=== PATIENT | male | born 1945 | race Caucasian/White ===

== ENCOUNTER 2016-11-10 05:15 | Day surgery (SDC) | payer OTHER ==
[2016-11-07 13:41] LABS: HEMATOCRIT 36.7 % (42.0-52.0); HEMOGLOBIN 12.7 g/dL (14.0-18.0); MCH 31.2 PG (27-31); MCHC 34.6 g/dL (33-37); MCV 90.2 FL (81-99); MPV 10.8 FL (7.4-10.4); RBC 4.07 XMIL (4.7-6.1)
[2016-11-07 14:25] LABS: ALBUMIN 4.1 g/dL (3.5-5.0); ALKALINE PHOSPHATASE 39 U/L (32-122); CALCIUM 9.1 mg/dL (8.8-10.2); DIRECT BILIRUBIN < 0.20 mg/dL (0.00-0.20); GOT 15 U/L (10-34); GPT 16 U/L (10-44); LIPASE 46 U/L (13-60); POTASSIUM 3.6 mmol/L (3.5-5.1); TOTAL BILIRUBIN 0.52 mg/dL (0.20-1.00); TOTAL PROTEIN 7.5 g/dL (6.3-8.3)
--- NOTE | 2016-11-07 15:37 | EKG Report ---
Test Performed on : 11/07/2016 1:31:12 PM Test Reason : PAT Blood Pressure : / mmHG Vent. Rate : 053 BPM Atrial Rate : 053 BPM P-R Int : 248 ms QRS Dur : 090 ms QT Int : 450 ms P-R-T Axes : 076 061 047 degrees QTc Int : 422 ms Sinus bradycardia. with 1st degree AV block. Otherwise normal ECG No previous ECGs available Confirmed by Candice MONREAL, Anand Villanueva ([id number]) on 11/07/2016 5:24:53 PM
[2016-11-10] MEDS ORDERED: KEFZOL 2 GM/D5W 50 ML ONE (05:28)
[2016-11-10] MEDS ORDERED: LR 1,000 ML ONE ×2 (05:28→06:39)
[2016-11-10] MEDS ORDERED: PEPCID ONE (05:29)
[2016-11-10] MEDS ORDERED: MARCAINE 0.25% PF/EPI 1:200,000 ONE (06:39)
[2016-11-10] MEDS ORDERED: SODIUM CHLORIDE 0.9% ONE (06:39)
[2016-11-10] MEDS ORDERED: REGLAN ONE (07:00)
[2016-11-10] MEDS ORDERED: FENTANYL ONE (09:16)
[2016-11-10] MEDS ORDERED: DIPRIVAN 1% ONE (09:16)
[2016-11-10] MEDS ORDERED: ZOFRAN ONE (09:19)
[2016-11-10] MEDS ORDERED: XYLOCAINE-MPF 2% ONE (09:20)
[2016-11-10] MEDS ORDERED: NORCURON ONE (09:20)
[2016-11-10] MEDS ORDERED: ROBINUL ONE (09:20)
[2016-11-10] MEDS ORDERED: QUELICIN (DOSE) ONE (09:20)
[2016-11-10] MEDS ORDERED: LR 2,000 ML ONE (09:20)
[2016-11-10] MEDS ORDERED: EPHEDRINE ONE (09:20)
[2016-11-10] MEDS ORDERED: NORCO-7.5 PO PRN (10:11)
[2016-11-10] MEDS ORDERED: ZOFRAN IV PRN ×2 (10:11→13:55)
[2016-11-10] MEDS ORDERED: NORCO-7.5 ONE ×2 (10:23→11:28)
--- NOTE | 2016-11-10 10:24 | OPERATIVE NOTE ---
PROCEDURE DATE : 11/10/2016 PREOPERATIVE DIAGNOSIS: Symptomatic cholelithiasis. POSTOPERATIVE DIAGNOSIS: Chronic cholecystitis. PROCEDURE PERFORMED: Laparoscopic cholecystectomy. COMPLICATIONS: None. ESTIMATED BLOOD LOSS: 20 mL. SPECIMENS: Gallbladder. ANESTHESIA: General. INDICATION: This is a 70-year-old male with right upper quadrant pain, nausea for several weeks. Ultrasound shows stones and thickening. OPERATIVE FINDINGS: Chronically inflamed with dense omental adhesions to the gallbladder, very thin-walled gallbladder, thick bile noted with some purulence within. DESCRIPTION OF PROCEDURE: Risks, benefits, and alternatives were discussed with the patient. He consented to the procedure. He was taken to the operating room, placed in supine position. General anesthesia was induced without complication. There was no complication to the induction. Preincisional antibiotics were administered. His abdomen was prepped with chlorhexidine solution and draped in usual fashion. A periumbilical block was performed. He had an umbilical hernia. After a time-out, we made an incision through this, dissected out the hernia sac , entered that, and here placed a 12 mm Jose M trocar and insufflated the abdomen, inspected it , no evidence of injury. Three 5 mm trocars were placed, one in the epigastrium, one in the midclavicular line off the costal margin, and one more laterally. We grasped the gallbladder, lifted it cephalad. There were a lot of omental adhesions that bled easily. We took these down with electrocautery, exposing the gallbladder wall. Upon grasping the gallbladder, it ruptured. We suctioned bile clear. Slow, meticulous dissection was carried starting laterally, progressing medial. It was very difficult to identify the cystic duct, but we were able to clearly identify the infundibulum. We encircled the lower third of the gallbladder and the infundibulum, but there was dense portal inflammation. As such, we did not proceed with any dissection distally. We attempted to perform a cholangiogram, but given the caliber of the infundibulum was too large, there was preferential flow in the gallbladder itself, and there was a small opening during the dissection of the infundibulum, as well. Given the size and dilated nature, we transected the gallbladder at the level of the infundibulum, using PDS Endoloops, we closed this x2. There was no leakage. There appeared to be good closure of this. We irrigated the wound. At this point, we took the gallbladder off the gallbladder fossa, obtaining hemostasis. There was a small arterial branch that was doubly clipped and divided, as well. We copiously irrigated the abdomen. There was no evidence of bleeding or bile leakage. We placed a Candelario drain in the gallbladder fossa, brought it out through a lateral port and secured it with 2-0 nylon suture. We desufflated the abdomen, again inspecting. There was no bile leakage at this time. We closed the fascia with interrupted 0 Vicryl suture, the skin with 4-0 Monocryl. Dermabond was applied, gauze, Tegaderm dressing was applied at the umbilicus. Counts correct x2. He tolerated the procedure well. There were no identified complication. [facility]
[2016-11-10] MEDS ORDERED: LR 1,000 ML IV SCH (13:55)
[2016-11-10] MEDS: PERIDEX MT SCH ×2 (15:00→20:45)
[2016-11-10] MEDS: NORCO-7.5 PO PRN (15:00)
[2016-11-10] MEDS: ZOSYN 3.375 GM/NS 50 ML IV SCH ×2 (18:32→23:12)
[2016-11-10] MEDS: LR 1,000 ML IV SCH (18:33)
[2016-11-11] MEDS: LR 1,000 ML IV SCH ×3 (01:07→17:54)
[2016-11-11] MEDS: ZOSYN 3.375 GM/NS 50 ML IV SCH ×3 (04:22→11:34)
[2016-11-11 06:25] LABS: MANUAL DIFF NEEDED? NO
[2016-11-11 06:56] LABS: ALBUMIN 3.4 g/dL (3.5-5.0); CALCIUM 8.7 mg/dL (8.8-10.2); TOTAL BILIRUBIN 0.58 mg/dL (0.20-1.00); TOTAL PROTEIN 6.2 g/dL (6.3-8.3)
[2016-11-11 07:40] LABS: BASO% 0.2 % (0.0-0.8); EOS# 0.13 X1000 (0.0-0.7); EOS% 2.2 % (0.0-10.0); HEMATOCRIT 32.4 % (42.0-52.0); LYMPH# 1.17 X1000 (1.2-3.4); LYMPH% 19.5 % (20.5-51.1); MCH 30.9 PG (27-31); MONO# 0.59 X1000 (0.11-0.59); MONO% 9.8 % (1.7-9.3); MPV 11.6 FL (7.4-10.4); NEUT% 68.3 % (42.2-75.2); PLT 116 X1000 (130-400); RBC 3.56 XMIL (4.7-6.1)
[2016-11-11 07:44] LABS: INR 1.06; PROTIME 10.8 Seconds (9.2-11.7); PTT 24.3 Seconds (22.0-36.0)
[2016-11-11] MEDS ORDERED: LIPITOR PO SCH (09:00)
[2016-11-11] MEDS ORDERED: ASPIRIN PO SCH (09:00)
[2016-11-11] MEDS: NORCO-7.5 PO PRN (09:53)
[2016-11-11] MEDS: NORVASC PO SCH (09:54)
[2016-11-11] MEDS: LOPRESSOR PO SCH (09:54)
[2016-11-11] MEDS: PRILOSEC PO SCH (09:54)
[2016-11-11] MEDS: FLONASE NAS SCH (09:54)
[2016-11-11] MEDS: PERIDEX MT SCH ×2 (09:55→21:50)
[2016-11-11] MEDS ORDERED: KLOR-CON PO ONE (10:05)
--- NOTE | 2016-11-11 12:50 | PROGRESS NOTE ---
DATE: 11/11/2016 SUBJECTIVE: He feels better this morning. Had some nausea with emesis overnight. The pain finding is really just over his incisions. Otherwise no issues. VITALS: He is afebrile. No tachycardia. Blood pressure is 133/49.General: He is alert. There is no jaundice. His incisions are clean, dry, intact. Abdomen: Is nondistended, appropriately tender at his incisions only mildly so. There is no peritonitis. His SHWETA drain is serosanguineous. There is some bile tinge to it as well. This appears to be improved since yesterday. LABS: White count 5, which is stable. Hematocrit is 32, creatinine is 1.4 which is stable from preoperative labs. Bilirubin is normal at 0.58, transaminases okay, alkaline phosphatase 32. ASSESSMENT/PLAN: A 70-year-old male with status post laparoscopic cholecystectomy for symptomatic stones and found to have significant acute and chronic cholecystitis. The gallbladder was very friable and with evidence of early necrosis and as such, attempt to close the infundibulum of the gallbladder was marginal. There is a slight tinge of bile to his drain, unfortunately not unexpected, however this is not pure bile and it appears if anything could be residual drainage that was spilled at the time of surgery but he would be a very high risk for cystic duct leak. His LFTs are normal. Monitoring these and he is clinically improving. I have discussed briefly with our advanced endoscopist that he might ultimately need a common bile duct stent to facilitate his healing of this slow leak although at this point, I think his drain is controlling it. Will monitor. If he is still leaking tomorrow, will engage them for this. Otherwise given some liquids today as he is starting to feel a little bit better from a nausea standpoint and continue to monitor. I do have him on antibiotics.
[2016-11-11] MEDS: ZOSYN 3.375 GM in NS 100 ML IV SCH ×2 (17:10→22:36)
[2016-11-11] MEDS: LIPITOR PO SCH (21:50)
[2016-11-12] MEDS: NORCO-7.5 PO PRN (01:12)
[2016-11-12] MEDS: ZOSYN 3.375 GM in NS 100 ML IV SCH ×4 (04:10→22:42)
[2016-11-12 05:34] LABS: MANUAL DIFF NEEDED? NO
[2016-11-12 05:42] LABS: BASO% 0.2 % (0.0-0.8); EOS# 0.18 X1000 (0.0-0.7); HEMATOCRIT 33.6 % (42.0-52.0); HEMOGLOBIN 11.5 g/dL (14.0-18.0); LYMPH# 1.01 X1000 (1.2-3.4); LYMPH% 16.8 % (20.5-51.1); MCH 31.3 PG (27-31); MCHC 34.2 g/dL (33-37); MCV 91.3 FL (81-99); MONO# 0.45 X1000 (0.11-0.59); MONO% 7.5 % (1.7-9.3); MPV 11.3 FL (7.4-10.4); NEUT% 72.5 % (42.2-75.2); PLT 126 X1000 (130-400); RBC 3.68 XMIL (4.7-6.1)
[2016-11-12 06:20] LABS: ALBUMIN 3.4 g/dL (3.5-5.0); CALCIUM 8.7 mg/dL (8.8-10.2); POTASSIUM 3.2 mmol/L (3.5-5.1); TOTAL BILIRUBIN 0.93 mg/dL (0.20-1.00); TOTAL PROTEIN 6.4 g/dL (6.3-8.3)
[2016-11-12] MEDS: LR 1,000 ML IV SCH ×3 (07:23→17:05)
[2016-11-12] MEDS: LOPRESSOR PO SCH (08:47)
[2016-11-12] MEDS: NORVASC PO SCH (08:47)
[2016-11-12] MEDS: PERIDEX MT SCH (08:47)
[2016-11-12] MEDS: PRILOSEC PO SCH (08:47)
[2016-11-12] MEDS: FLONASE NAS SCH (08:50)
--- NOTE | 2016-11-12 11:01 | PROGRESS NOTE ---
DATE: 11/12/2016 SUBJECTIVE: Feels better. No pain. No nausea. OBJECTIVE: Vital Signs: No fevers. No tachycardia. Blood pressure 151/50. Oxygen saturation is 95% on room air. General: He is alert. HEENT: There is no scleral icterus. Abdomen: Soft, nontender, nondistended. Incision clean, dry, and intact. His SHWETA drain is more bilious this morning. Laboratory Data: I have reviewed his labs. White count is normal at 6. Hematocrit has been stable. LFTs are normal as well with a bilirubin of 0.93. ASSESSMENT/PLAN: A 70-year-old male, status post laparoscopic cholecystectomy for cholelithiasis and cholecystitis. A very friable gallbladder with difficult closure of the infundibulum. He has a low volume bile leak evident at this point. We will pursue endoscopic retrograde cholangiopancreatography. I contacted Dr. Johnson. We have a formal consult for endoscopic retrograde cholangiopancreatography and stent to facilitate resolution of the infundibulum/cystic duct leak. His liver function tests are normal. We will continue to follow along. Leave the drain in place. He is on antibiotics.
[2016-11-12] MEDS: LIPITOR PO SCH (22:39)
[2016-11-13] MEDS: LR 1,000 ML IV SCH ×2 (01:39→04:15)
[2016-11-13] MEDS: PERIDEX MT SCH ×3 (04:13→20:40)
[2016-11-13] MEDS: ZOSYN 3.375 GM in NS 100 ML IV SCH ×2 (04:14→11:06)
[2016-11-13] MEDS: NORCO-7.5 PO PRN (04:46)
[2016-11-13] MEDS: LOPRESSOR PO SCH (08:24)
[2016-11-13] MEDS: 1/2 NS + KCL 20 MEQ 1,000 ML IV SCH ×2 (08:24→23:22)
[2016-11-13 08:40] LABS: AGAP 14; ALBUMIN 3.6 g/dL (3.5-5.0); ALKALINE PHOSPHATASE 31 U/L (32-122); BUN 10 mg/dL (8-22); CALCIUM 8.9 mg/dL (8.8-10.2); CHLORIDE 101 mmol/L (98-107); COSMO 278; GOT 17 U/L (10-34); GPT 15 U/L (10-44); POTASSIUM 3.5 mmol/L (3.5-5.1); SODIUM 140 mmol/L (136-145); TCO2 25 mmol/L (25-35); TOTAL BILIRUBIN 1.23 mg/dL (0.20-1.00); TOTAL PROTEIN 6.3 g/dL (6.3-8.3)
[2016-11-13] MEDS: NORVASC PO SCH (11:10)
[2016-11-13] MEDS: FLONASE NAS SCH (11:10)
[2016-11-13] MEDS: PRILOSEC PO SCH (11:10)
--- NOTE | 2016-11-13 11:44 | PROGRESS NOTE ---
DATE: 11/13/2016 SUBJECTIVE: He feels well. No real abdominal pain. No nausea. He is hungry and asking for food. OBJECTIVE: Vital signs: No fevers. No tachycardia. General: He is alert. HEENT: There is no scleral icterus or jaundice. Abdomen: Soft, nontender. Incisions are all clean, dry, and intact. His SHWETA drain is bilious at this point. LABS: Reviewed. White count was normal yesterday. Bilirubin is mildly elevated at 1.23 but creatinine is okay. Transaminases are normal. Alkaline phosphatase is low at 31. ASSESSMENT: This is a 70-year-old male status post laparoscopic cholecystectomy for severe cholecystitis. He had has developed a bile leak, not unexpected given the quality of his gallbladder. I have engaged Dr. Johnson with GI medicine. Plans for ERCP with stent placement tomorrow. I will let him eat today and NPO at midnight for anticipation of this. He has no peritonitis. Clinically he is doing very well and the drain appears to be containing this leak adequately. He is on antibiotics.
[2016-11-13] MEDS: ZOSYN 3.375 GM/NS 50 ML IV SCH ×2 (18:06→23:24)
--- NOTE | 2016-11-13 20:08 | PROGRESS NOTE ---
DATE: 11/13/2016 ATTENDING PHYSICIAN: Valdo Gamble MD PRIMARY DOCTOR: Carroll Almaraz DO SUBJECTIVE: The patient currently NPO for potential endoscopic retrograde cholangiopancreatography today. I discussed with Dr. aShil Johnson most likely endoscopic retrograde cholangiopancreatography will be done tomorrow, so we will start the patient on diet today. He was made NPO past midnight for endoscopic retrograde cholangiopancreatography tomorrow by Dr. Sahil Johnson. SUBJECTIVE: Vitals: Temperature of 98.4 degrees, pulse rate of 63, respiratory 17, blood pressure 115/64, saturating 94% room air. General: Is obese, lying in bed, in no acute distress. HEENT: Mild pallor. No icterus. Pupils equal, reactive to light. Neck: Supple. Abdomen: Drain in the right upper quadrant. No rebound. No guarding. Mild discomfort of the right upper quadrant. Bowel sounds hypoactive. Extremities: No cyanosis or clubbing. Neurologic: He is alert, awake, oriented. LABS: His hemoglobin and hematocrit is 11.5 and 33.6. White count of 6. Platelet count of 126,000. PT of 10.8, INR 1.06, PTT of 24.3. Sodium 140, potassium 3.5, chloride 101, bicarb 25, anion gap 14, BUN of 10, creatinine 1.1. Glucose of 91. Calcium is 8.9. Total bilirubin is 1.23. AST 17, ALT 15, alkaline phosphatase 31. Total protein 6.2, albumin of 3.6, lipase of 46. IMPRESSION AND PLAN: Status post laparoscopic cholecystectomy for severe cholecystitis. Is now awaiting endoscopic retrograde cholangiopancreatography for bile leak per Dr. Sahil Johnson. In this regard, we will make him NPO past midnight. We will schedule for endoscopic retrograde cholangiopancreatography tomorrow by Dr. Sahil Johnson. We will continue on GI soft diet. We will start him on PPIs, GI prophylaxis, and he is already covered with IV fluids and IV antibiotics per the primary care team. Anemia- watch for now. May need outpatient EGD and colonoscopy after above is addressed. Obesity: will need to monitor calorie intake and try to loose weight. Further recommendations to follow pending hospitalist. [facility]
[2016-11-13] MEDS: LIPITOR PO SCH (20:40)
[2016-11-14] MEDS: ZOSYN 3.375 GM/NS 50 ML IV SCH ×5 (05:11→23:05)
[2016-11-14 08:28] LABS: ALBUMIN 3.3 g/dL (3.5-5.0); CALCIUM 8.7 mg/dL (8.8-10.2); POTASSIUM 3.4 mmol/L (3.5-5.1); TOTAL BILIRUBIN 0.97 mg/dL (0.20-1.00); TOTAL PROTEIN 6.9 g/dL (6.3-8.3)
[2016-11-14] MEDS: PERIDEX MT SCH ×2 (08:46→21:17)
[2016-11-14] MEDS: LOPRESSOR PO SCH (08:47)
[2016-11-14] MEDS: NORVASC PO SCH (08:47)
[2016-11-14] MEDS: PRILOSEC PO SCH (08:47)
[2016-11-14] MEDS: FLONASE NAS SCH (08:51)
--- NOTE | 2016-11-14 11:01 | PROGRESS NOTE ---
DATE: 11/14/2016 SUBJECTIVE: Feels well. He is in good spirits. No abdominal pain. Appetite is good. Normal bowel function. OBJECTIVE: Vital Signs: He is afebrile. There is no tachycardia. Blood pressure 156/70. General: He is alert, in no acute distress. There is no scleral icterus or jaundice. Abdomen: Soft. Incisions are clean, dry, and intact. SHWETA drainage has bile in it. LABORATORIES: Laboratories are reviewed. His LFTs this morning show his bilirubin is normal at 0.97. This is down from yesterday. Transaminases are normal. Alkaline phosphatase is low at 29. ASSESSMENT: A 70-year-old male status post laparoscopic cholecystectomy for severe cholecystitis with very poor tissue quality of the gallbladder and cystic duct, who has developed a leak in the postoperative period. PLAN: ERCP with stent placement today to facilitate healing of the fistula with Dr. Johnson. I have discussed this. He is on the schedule. Will let him afterwards and plan for his discharge maybe later today, most likely tomorrow, assuming LFTs stay stable. He is on antibiotics, but after ERCP I think we can most likely transition this to oral.
[2016-11-14] MEDS ORDERED: MYLICON DROPS (DOSE) MISC ONE (12:30)
[2016-11-14] MEDS ORDERED: GLUCAGON ONE (12:47)
[2016-11-14] MEDS ORDERED: VERSED ONE (13:48)
[2016-11-14] MEDS ORDERED: FENTANYL ONE (13:49)
[2016-11-14] MEDS ORDERED: DIPRIVAN 1% ONE (13:50)
--- NOTE | 2016-11-14 14:06 | OPERATIVE NOTE ---
PROCEDURE DATE: 11/14/2016 PROCEDURE: ERCP. Endoscopic sphincterotomy and stent placement. PREOPERATIVE DIAGNOSIS: Bile leak. POSTOPERATIVE DIAGNOSES: Bile leak at the cystic duct at the clips. DESCRIPTION OF PROCEDURE: After informed consent and adequate intravenous sedation by Anesthesia, the scope was introduced to the esophagus stomach and duodenum. Ampulla was normal. The Quick pancreatogram was normal. Cholangiogram revealed free flow of the contrast at the cystic duct clips. At this point, a wide sphincterotomy was done and a 10-Bhutanese, 7 cm stent was deployed. The scope was withdrawn. The patient tolerated the procedure well without any immediate complications.
[2016-11-14] MEDS ORDERED: XYLOCAINE-MPF 2% ONE (14:11)
--- NOTE | 2016-11-14 14:39 | Diag Imaging Result Document ---
PROCEDURE NAME: ERCP-BILIARY AND PANCREATIC - 11/14/2016 ERCP: COMPARISON: None available. FINDINGS: Three limited spot fluoroscopic images were provided, which were performed during ERCP and biliary stent placement by Dr. Johnson. On these limited images, the common bile duct appears to be grossly normal in diameter. No obvious stricture can be identified on these images. There appears to be a newly placed biliary stent on the final image. IMPRESSION: As above. Please correlate with live fluoroscopic imaging.
[2016-11-14] MEDS: 1/2 NS + KCL 20 MEQ 1,000 ML IV SCH (15:32)
[2016-11-14] MEDS: NORCO-7.5 PO PRN (21:17)
[2016-11-14] MEDS: LIPITOR PO SCH (21:17)
[2016-11-15] MEDS: ZOSYN 3.375 GM/NS 50 ML IV SCH ×3 (04:48→10:42)
[2016-11-15] MEDS: 1/2 NS + KCL 20 MEQ 1,000 ML IV SCH (04:48)
[2016-11-15 07:50] VITALS: BP 135/65
[2016-11-15] MEDS: FLONASE NAS SCH (08:36)
[2016-11-15] MEDS: NORVASC PO SCH (08:36)
[2016-11-15] MEDS: PRILOSEC PO SCH (08:36)
[2016-11-15] MEDS: PERIDEX MT SCH (08:36)
[2016-11-15] MEDS: LOPRESSOR PO SCH (08:40)
[2016-11-15 10:14] LABS: ALBUMIN 3.4 g/dL (3.5-5.0); CALCIUM 8.8 mg/dL (8.8-10.2); POTASSIUM 3.4 mmol/L (3.5-5.1); TOTAL BILIRUBIN 0.54 mg/dL (0.20-1.00); TOTAL PROTEIN 6.7 g/dL (6.3-8.3)
--- NOTE | 2016-11-15 11:20 | DISCHARGE SUMMARY ---
ADMISSION DATE: 11/12/2016 DISCHARGE DATE: HISTORY OF PRESENT ILLNESS: This 70-year-old male with symptomatic cholelithiasis and chronic cholecystitis. He underwent a cholecystectomy in the last week. He had a very friable and inflamed early necrotic the gallbladder. There was difficulty closing the infundibulum, cystic junction in the operating room, but felt to have had a good closure. Left drain preemptively. He was admitted and did develop a bile leak postoperatively. Liver function tests remain normal. His diet was tolerated and he progressed well from a surgical standpoint with no evidence of peritonitis. We did him on antibiotic coursed for the leak and the purulent nature of his bile in the gallbladder. Ultimately, he underwent endoscopic retrograde cholangiopancreatography with Dr. Sahil Johnson yesterday which confirmed a cystic duct leak; however, no evidence of common bile duct injury. This was normal. He placed stents its leak with no evidence of extravasation following. His drain output significantly decreased overnight. He is tolerating his diet and pain was controlled. Sarita safe for discharge. On day of his discharge, his incisions are all clean, dry, and intact. He is given drain care instructions and a course of Augmentin going home for 7 days. We will see him early next week in my office for drain removal. He will need a stent removal by Dr. Sahil Johnson in approximately 6 weeks. LFTs were pending the morning of discharge. We will follow these up but they have been normal at this point. No symptoms of pancreatitis. DIET: GI soft diet as tolerated. ACTIVITY: Avoid heavy lifting greater than 10 pounds. Will given drain care instructions. He will call my office. I have given my cell phone. If he has any issues he will call me personally. He will call if he develops worsening pain, fevers, or wound issues.
== END 2016-11-15 11:28 | disposition home or self-care (01) ==
LOC: PAT 05:15 → UNDOADMOB 13:28 → 4N 13:28 → INTOOBSV 11-12 11:03 → OBSVTOIN 11-12 11:03 → 4N 11-14 07:02 → DIRADM 11-14 07:02 → 4N 11-14 07:04 → DIRADM 11-14 07:04 → UNDODISOB 11-15 11:28 → PAT 11-15 11:28
PROVIDERS: ATTEND Surgery
DX: K80.12 Calculus of gallbladder with acute and chronic cholecystitis without obstruction (principal); K91.89 Other postprocedural complications and disorders of digestive system; K83.8 Other specified diseases of biliary tract; D64.9 Anemia, unspecified; K42.9 Umbilical hernia without obstruction or gangrene; E66.9 Obesity, unspecified; I12.9 Hypertensive chronic kidney disease with stage 1 through stage 4 chronic kidney disease, or unspecified chronic kidney disease; N18.9 Chronic kidney disease, unspecified; G47.33 Obstructive sleep apnea (adult) (pediatric); E78.00 Pure hypercholesterolemia, unspecified; J30.2 Other seasonal allergic rhinitis; M16.0 Bilateral primary osteoarthritis of hip; K21.9 Gastro-esophageal reflux disease without esophagitis; Z86.010 Personal history of colon polyps; Z68.34 Body mass index [BMI] 34.0-34.9, adult; Z79.899 Other long term (current) drug therapy; Z79.51 Long term (current) use of inhaled steroids; Z82.49 Family history of ischemic heart disease and other diseases of the circulatory system; Z79.82 Long term (current) use of aspirin; Z79.1 Long term (current) use of non-steroidal anti-inflammatories (NSAID)
CPT/HCPCS: 74330; 80048; 80053; 80076; 83690; 85025; 85027; 85610; 85730; 88304; 93005; 93010; 94761; 94799; C1751; C2617; J0330; J0690; J1610; J2250; J2405; J2543; J2765; J3010; J3480; J7120; Q9966

== ENCOUNTER 2018-11-02 06:10 | Inpatient (IN) ==
--- NOTE | 2018-11-02 06:38 | PROVIDER DOCUMENTATION ---
HPI-General Adult - General Chief Complaint: Abdominal Pain Stated Complaint: SOB / BACK PAIN Time Seen by Provider: 11/02/18 06:22 Source: patient Allergies/Adverse Reactions: Patient Allergies Allergy/AdvReac Type Severity Reaction Status Date / Time No Known Allergies Allergy Verified 11/02/18 06:52 Home Medications: Home Medication List Medication Instructions Recorded Confirmed Last Taken Type ATORVAstatin [Lipitor] 40 mg PO DAILY 11/07/16 11/02/18 01/01/17 20:00 History Fluticasone Propionate [Flonase 1 spray NS DAILY 11/07/16 11/02/18 12/31/16 History Allergy Relief] Metoprolol [Lopressor] 50 mg PO BID 11/07/16 11/02/18 01/02/17 07:00 History Aspirin 325 mg PO DAILY 01/25/18 11/02/18 Unknown History Cholecalciferol (Vitamin D3) 2,000 unit PO DAILY 01/25/18 11/02/18 Unknown History [Vitamin D3] Losartan [Cozaar] 50 mg PO BID 01/25/18 11/02/18 Unknown History Torsemide 20 mg PO DIRECTED 01/25/18 11/02/18 Unknown History - History of Present Illness -Gen Adult Nature of Presenting Problems: 72 y/o M presents to the ED complaining of cough and back pain. States he began to have a cough with congestion 3-4 days ago and since yesterday has had sharp pain in his back and left anterior chest when he coughs. States cough is productive of greenish blood tinged sputum. No fever. Has had mild congestion and has had a couple of episodes of emesis. No diarrhea no fever. In triage also noted that had a tick in his umbilicus. Review of Systems - Adult - REVIEW OF SYSTEMS - ADULT Constitutional: reports: no symptoms reported Eyes: reports: no symptoms reported Ears, Nose, Mouth & Throat: reports: throat pain, other (congestion). denies: ear pain Cardiovascular: reports: no symptoms reported Respiratory: reports: cough, shortness of breath (mild) Gastrointestinal: reports: vomiting. denies: abdominal pain, diarrhea Genitourinary: reports: no symptoms reported Musculoskeletal: reports: back pain Integumentary: reports: no symptoms reported Neurological: reports: no symptoms reported Psychiatric: reports: no symptoms reported Endocrine: reports: no symptoms reported Hematologic/Lymphatic: reports: no symptoms reported Allergic/Immunologic: reports: no symptoms reported All Other Systems: Reviewed and Negative Past History - Adult - PAST MEDICAL HISTORY-ADULT Review of Records: reports: Old Records Reviewed, Nursing Assessment Review, Medications Reviewed, Social history reviewed & non-contributory. Physical Exam-General - PHYSICAL EXAM-ADULT Initial Vital Signs Reviewed: Yes - CONSTITUTIONAL General Appearance: appears well, alert, no apparent distress - EYES Eyes: PERRL/EOMI - HEAD, EARS, NOSE, MOUTH & THROAT HENMT: normocephalic/atraumatic, moist mucous membranes, normal ENT inspection - NECK Neck: non-tender, full range of motion - RESPIRATORY Respiratory: chest non-tender, normal breath sounds, rhonchi (BL bases) - CARDIOVASCULAR Cardiovascular: normal peripheral pulses, regular rate, rhythm, no edema - GASTROINTESTINAL (ABDOMEN) Abdominal Exam: non tender, soft - MUSCULOSKELETAL Back Exam: normal inspection, no CVA tenderness, no vertebral tenderness Extremity: normal range of motion, non-tender - SKIN Integumentary: normal color, normal turgor, warm/dry, other (tick in left inferior edge of umbilicus) - NEUROLOGIC Neurologic: grossly normal, no motor/sensory deficits - PSYCHIATRIC Psych/Mental Status: normal mood/affect, normal thought content, normal thought process, oriented x 3 Progress - PLAN OF CARE/RESULTS Progress/Plan/Lab Results: Vital Signs - 8 hr 11/02/18 06:22 Temperature 98.9 F Pulse Rate 78 Respiratory Rate 25 H Blood Pressure 175/99 O2 Sat by Pulse Oximetry 96 Orders Category Date Time Status IV Insertion ORDERED Care 11/02/18 06:28 Ordered CHEST-2 VIEWS [RAD] Stat Exams 11/02/18 06:28 Ordered CBC WITH ELECTRONIC DIFF [HEME] Stat Lab 11/02/18 06:28 Uncollected COMPREHENSIVE METABOLIC PANEL [CHEM] Stat Lab 11/02/18 06:[address] Stat Lab 11/02/18 06:28 Uncollected LIPASE [CHEM] Stat Lab 11/02/18 06:28 Uncollected PRO B-NATRIURETIC PEPTIDE Stat Lab 11/02/18 06:28 Uncollected TROPONIN T Stat Lab 11/02/18 06:28 Ordered cough with back pain and productive sputum will further evaluate for causes including but not limited to pna, uri, bronchitis, mass, acs, influenza, uti, pyelo Tick removed with gentle traction using forceps. removed intact. Result Diagrams: 11/02/18 06:33 11/02/18 06:33 - EKG 1 Time of EKG reading by physician:: 06:24 EKG Read and Signed by:: Caitlyn Stallings EKG Interpretation (*Must complete 3 of following elements*): Normal (Sinus Rhythm, rate 74, no acute st changes, normal axis and intervals, some artifact) - XRAY 1 XRAY Study: Chest Impression: Abnormal (left sided pneumonia) - CHANGE OF SHIFT REPORT (ED Provider) 1 Report Given and Care Transferred to:: Dr. Khan Items Pending: Labs, XRAY Results, Other (and final disposition) Departure - Departure Date of Disposition Decision: 11/02/18 Time of Disposition Decision: 08:33 DIAGNOSIS: Pneumonia, Cardiomegaly, Tick bites Disposition: ADMITTED INPATIENT 09 Certified Medical Emergency: Emergent Condition: Stable Referrals and Follow-Ups: Carroll Almaraz DO [Primary Care Provider] - - Critical Care Note This patient required my direct & personal management of CC.: No Attestation - Physician/ MARLENY Attestation Patient care was provided by Advanced Practice Provider:: No The physician spent face to face time with patient:: Yes Advanced Practice Provider documentation review:: Supervising physician onsite and consulted in the evaluation and care of this patient. The physician did have a face to face encounter with the patient.
[2018-11-02 06:50] LABS: BASO# 0.01 X1000 (0.0-0.2); BASO% 0.1 % (0.0-0.8); EOS# 0.03 X1000 (0.0-0.7); EOS% 0.3 % (0.0-10.0); HEMATOCRIT 36.2 % (42.0-52.0); HEMOGLOBIN 11.4 g/dL (14.0-18.0); IMM GRAN# 0.02 X1000 (0.0-0.04); IMM GRAN% 0.2 % (0.0-0.5); LYMPH# 0.49 X1000 (1.2-3.4); LYMPH% 5.7 % (20.5-51.1); MCH 27.7 PG (27-31); MCHC 31.5 g/dL (33-37); MCV 88.1 FL (81-99); MONO# 0.58 X1000 (0.11-0.59); MONO% 6.7 % (1.7-9.3); MPV 11.1 FL (7.4-10.4); NEUT# 7.52 X1000 (1.4-6.5); PLT 130 X1000 (130-400); RBC 4.11 XMIL (4.7-6.1); WBC 8.65 X1000 (4.8-10.8)
[2018-11-02 07:00] LABS: INFLUENZA A NEGATIVE (NEGATIVE); INFLUENZA B NEGATIVE (NEGATIVE)
[2018-11-02 07:02] LABS: ALBUMIN 3.8 g/dL (3.5-5.0); CALCIUM 8.4 mg/dL (8.8-10.2); CREATININE 1.5 mg/dL (0.7-1.2); POTASSIUM 3.6 mmol/L (3.5-5.1); TOTAL BILIRUBIN 0.9 mg/dL (0.20-1.00)
--- NOTE | 2018-11-02 07:56 | Diag Imaging Result Doc PS360 ---
EXAM: CHEST-2 VIEWS INDICATION: cough TECHNIQUE: 2 views COMPARISON: None. FINDINGS: There is dense left upper lobe airspace consolidation consistent with pneumonia. There is no discrete pleural fluid collection or pneumothorax. 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 There is mild cardiomegaly. Central vasculature is unremarkable. IMPRESSION: Left upper lobe pneumonia. Electronically signed by Bam Bonner 11/02/2018 7:53 AM
[2018-11-02] MEDS ORDERED: ROCEPHIN 1 GM in NS 50 ML IV ONE (08:43)
[2018-11-02] MEDS ORDERED: ZITHROMAX PO ONE (08:55)
[2018-11-02] MEDS ORDERED: TYLENOL PO ONE (09:03)
[2018-11-02] MEDS ORDERED: NS 1,000 ML IV ONE (10:44)
[2018-11-02] MEDS ORDERED: TYLENOL PO PRN (10:44)
[2018-11-02] MEDS: DUONEB (A & A) INH SCH ×3 (11:45→22:48)
[2018-11-02] MEDS: FLONASE NAS SCH (12:23)
[2018-11-02] MEDS: ASPIRIN PO SCH (12:25)
[2018-11-02] MEDS: LOPRESSOR PO SCH ×2 (12:25→20:54)
[2018-11-02] MEDS: VITAMIN D PO SCH (12:25)
[2018-11-02] MEDS: COZAAR PO SCH ×2 (12:25→20:54)
--- NOTE | 2018-11-02 14:49 | HISTORY AND PHYSICAL ---
PRIMARY CARE PHYSICIAN: Dr. Carroll Almaraz. CHIEF COMPLAINT: Subjective fever, chills, body aches, cough productive of green-tinged sputum over the past 3 to 4 days that has progressively worsened. HISTORY OF PRESENTING ILLNESS: This is a 72-year-old male, who presents to [facility] ER with complaints of fever, chills, body aches, productive cough over the past 3 to 4 days that had progressively worsened. Also, had a couple episodes of vomiting, and in triage his noted that he had a tick in his umbilicus. Workup showed on arrival he had a temperature of 98.9 degrees, but approximately 2 hours later it did go up to 101.9. His creatinine was 1.5. His chest x-ray showed a left upper lobe pneumonia, so he is being admitted for further evaluation and treatment. PAST MEDICAL HISTORY: Hyperlipidemia, hypertension, vitamin D deficiency. PAST SURGICAL HISTORY: Anal fissure repair and a cholecystectomy. FAMILY HISTORY: Reviewed and noncontributory. SOCIAL HISTORY: He currently lives with his . Denies any tobacco, alcohol or illicit drug use. ALLERGIES: He has no known drug allergies. HOME MEDICATIONS: We will hold his torsemide 20 mg p.o. as directed. We will continue his aspirin 325 mg p.o. daily, atorvastatin 40 mg p.o. daily, vitamin D 3 2000 units p.o. daily, Flonase nasal spray 1 spray nasally daily, losartan 50 mg p.o. b.i.d., and metoprolol 50 mg p.o. b.i.d. LABORATORY DATA: Showed a white blood cell count of 8.65, hemoglobin 11.4, hematocrit 36.2, platelets 130. Sodium 142, potassium 3.6, chloride 103, CO2 26. BUN of 18, creatinine 1.5, glucose 125. Cardiac enzyme was negative. ProBNP of 6097. Lipase 26. Plasma lactate 1.7. IMAGING STUDIES: Chest x-ray showed a left upper lobe pneumonia. REVIEW OF SYSTEMS: He was positive for subjective fever, chills, body aches, cough with green productive sputum, some shortness of breath worse with exertion, fatigue. Denied any chest pain, abdominal pain, constipation, diarrhea, burning or hurting with urination. PHYSICAL EXAMINATION: VITAL SIGNS: On arrival he had a temperature of 98.9 degrees, pulse 78, respirations 25, blood pressure 175/99, satting 96% on room air. Approximately 3 hours later, his fever did go up to 101.9 and currently at 100.2. GENERAL: This is a 72-year-old male, who is lying in the bed and answers questions appropriately. HENT: Normocephalic, atraumatic. Normal ENT inspection. Oropharynx and nares are clear. EYES: Pupils are equal, round, reactive to light and accommodation. Extraocular movements are intact. NECK: Normal inspection, normal range of motion. LUNGS: With rhonchi to bilateral bases. Equal lung expansion. Chest wall movement noted. HEART: With regular rate and rhythm. No murmurs, rubs, or gallops. ABDOMEN: Soft, nontender, nondistended. Bowel sounds are present x4 quadrants. MUSCULOSKELETAL: He has 5/5 strength x4 extremities. NEUROLOGICAL: The cranial nerves 2-12 appear grossly intact. ASSESSMENT: 1. Left upper lobe pneumonia. 2. An acute kidney injury. 3. Hypertension. 4. Hyperlipidemia. PLAN: He is being admitted to the medical unit. Placed on telemetry O2 per protocol, healthy heart diet. Blood cultures x2 are pending. He is on Rocephin 1 gram IV q. 24 hours, azithromycin 500 IV q. 24 hours, normal saline at 100 mL an hour. Continue his home medications as previously identified. We will continue to hold any diuretics. Recheck a CBC, BMP in the a.m. Dictated by AZ Banuelos for Kvng Huerta MD cc: AZ Banuelos MD Thomas E. Lockard, DO
--- NOTE | 2018-11-02 19:00 | PROGRESS NOTE ---
DATE: 11/02/2018 The patient presented with fever and shortness of breath and some hemoptysis. OBJECTIVE: Blood pressure 153/51, heart rate 69, respiratory 18, temperature 98.8 degrees, 99% on room air.Cardiovascular: Regular rate and rhythm. Pulmonary: Bilateral breath sounds clear to auscultation. GI: Soft, nontender, nondistended. Bowel sounds are positive. LABORATORY DATA: White count is 8, hemoglobin and hematocrit 11, 36, platelets 130,000, creatinine 1.5, ProBNP 6097 but he has fevers all day up to 101.9. PROBLEM LIST: Left upper lobe pneumonia. We will continue to follow closely. His pulmonary exam is fairly benign but he has hemoptysis, upper lobe airspace disease so I am not quite sure if I doubt he does not really have any factors for TB but will get QuantiFERON, progress with chest CT, continue empiric antibiotics an he is on Rocephin, azithromycin. We will continue to follow. cc: Kvng Huerta MD
[2018-11-02] MEDS: LIPITOR PO SCH (20:54)
[2018-11-03] MEDS: DUONEB (A & A) INH SCH ×4 (04:05→21:08)
[2018-11-03] MEDS: ROBITUSSIN-AC PO PRN ×2 (05:50→20:02)
[2018-11-03] MEDS ORDERED: LOVENOX SUBQ SCH (06:00)
[2018-11-03 07:11] LABS: BASO# 0.01 X1000 (0.0-0.2); BASO% 0.1 % (0.0-0.8); EOS# 0.07 X1000 (0.0-0.7); HEMATOCRIT 29.9 % (42.0-52.0); HEMOGLOBIN 9.3 g/dL (14.0-18.0); IMM GRAN# 0.02 X1000 (0.0-0.04); IMM GRAN% 0.3 % (0.0-0.5); LYMPH# 0.75 X1000 (1.2-3.4); MCH 27.7 PG (27-31); MCHC 31.1 g/dL (33-37); MONO# 0.53 X1000 (0.11-0.59); MONO% 7.8 % (1.7-9.3); NEUT# 5.45 X1000 (1.4-6.5); NEUT% 79.8 % (42.2-75.2); PLT 105 X1000 (130-400); RBC 3.36 XMIL (4.7-6.1); RDW 15.2 % (11.5-14.5); WBC 6.83 X1000 (4.8-10.8)
[2018-11-03 07:20] LABS: CALCIUM 8.2 mg/dL (8.8-10.2); CREATININE 1.6 mg/dL (0.7-1.2); POTASSIUM 3.3 mmol/L (3.5-5.1)
[2018-11-03] MEDS: ROCEPHIN 1 GM in NS 50 ML IV SCH (09:45)
[2018-11-03] MEDS: VITAMIN D PO SCH (09:50)
[2018-11-03] MEDS: ASPIRIN PO SCH (09:50)
[2018-11-03] MEDS: COZAAR PO SCH (09:50)
[2018-11-03] MEDS: FLONASE NAS SCH (09:50)
[2018-11-03] MEDS: LOPRESSOR PO SCH ×2 (09:51→20:02)
[2018-11-03] MEDS ORDERED: ZITHROMAX 500 MG/NS 500 MG/250 ML IVPB IV SCH (10:00)
--- NOTE | 2018-11-03 10:04 | Diag Imaging Result Doc PS360 ---
EXAM: CT THORAX W/O CONTRAST INDICATION: lung mass TECHNIQUE: This exam was performed using automated exposure control, adjustment of mA or kV according to patient size, and/or use of iterative reconstruction technique. COMPARISON: None. FINDINGS: There is very dense airspace consolidation in the inferior left upper lobe extending into the lingula consistent with pneumonia. No well-defined underlying mass is identified given the limitations of an unenhanced CT. Consider follow-up, at least with plain radiography, to assure resolution. There is mild linear scarring at the mid and lower lung zones bilaterally. There appears to be trace pleural fluid versus chronic pleural thickening posterior to the right upper lobe. There is no pneumothorax. There is cardiomegaly. There is evidence of prior CABG. No significant mediastinal lymphadenopathy is appreciated. Limited views of the upper abdomen reveals a small 1.6 cm nodule arising from the cortex at the upper pole of the left kidney that is near isodense to the renal parenchyma. Statistically, this probably represents a blood or protein filled cyst. However, it is nonspecific with unenhanced CT. There is a 1 cm right adrenal nodule that is also technically nonspecific but statistically most likely represents an adenoma. IMPRESSION: 1.Very dense left upper lobe consolidation indicating severe pneumonia. Please see above discussion. 2.Mild linear scarring at the mid and lower lung zones bilaterally. 3.Cardiomegaly. 4.Incidental small left renal nodule and right adrenal nodule as discussed above. Electronically signed by Bam Bonner 11/03/2018 10:01 AM
[2018-11-03] MEDS ORDERED: KLOR-CON PO ONE (11:46)
[2018-11-03] MEDS ORDERED: NS 1,000 ML IV ONE (16:52)
--- NOTE | 2018-11-03 17:19 | PROGRESS NOTE ---
DATE: 11/03/2018 SUBJECTIVE: The patient has no major complaints except coughing, but that seems to have improved. OBJECTIVE: Vital signs: Blood pressure is 145/59, heart rate 59, respiratory 16, temperature 98.6 degrees. He had a temperature yesterday but not since then. Cardiovascular: Regular rate and rhythm. Pulmonary: Bilateral breath sounds diminished left mid lung deutsch. GI: Soft, nontender, nondistended. Bowel sounds are positive. LABORATORY DATA: White count is 6, hemoglobin and hematocrit 9 and 29 platelets 105,000. Potassium 3.3, creatinine 1.6. PROBLEM LIST: 1. Left upper lobe pneumonia, unknown particular etiology. No white count, which is unusual, but he did clearly have fever, so clinically I still think this is a community-acquired pneumonia. We will continue Rocephin, azithromycin, and pulmonary toilet. 2. Acute kidney injury. He has had some renal insufficiency. I am not sure if this is maybe a new baseline. He has been at 1.3 before. We will continue some gentle fluids and follow. We will check some urine electrolytes and see how he does. 3. Hypertension. Seems to be doing okay. DISPOSITION: I think he is probably okay to go home tomorrow if things are stable. He just has very dense infiltrate. I just would recommend primary team that he gets a follow-up chest x-ray in 4-6 weeks just make sure clear resolution. His PCP is Dr. Almaraz, so that should be fairly easy enough to arrange. cc: Kvng Huerta MD
[2018-11-03 18:43] LABS: UR CREAT RANDOM 270.2 mg/dL (14-26)
[2018-11-03] MEDS: LIPITOR PO SCH (20:02)
[2018-11-03] MEDS: MUCOMYST 20% INH SCH (21:08)
[2018-11-04] MEDS: ROBITUSSIN-AC PO PRN ×3 (01:52→21:50)
[2018-11-04] MEDS: DUONEB (A & A) INH SCH ×4 (03:30→21:49)
[2018-11-04 06:42] LABS: BASO# 0.01 X1000 (0.0-0.2); BASO% 0.2 % (0.0-0.8); EOS# 0.11 X1000 (0.0-0.7); EOS% 1.9 % (0.0-10.0); HEMATOCRIT 29.1 % (42.0-52.0); HEMOGLOBIN 8.9 g/dL (14.0-18.0); IMM GRAN# 0.01 X1000 (0.0-0.04); IMM GRAN% 0.2 % (0.0-0.5); LYMPH% 10.3 % (20.5-51.1); MCH 27.3 PG (27-31); MCHC 30.6 g/dL (33-37); MCV 89.3 FL (81-99); MONO# 0.61 X1000 (0.11-0.59); MONO% 10.5 % (1.7-9.3); MPV 11.9 FL (7.4-10.4); NEUT# 4.48 X1000 (1.4-6.5); NEUT% 76.9 % (42.2-75.2); PLT 122 X1000 (130-400); RBC 3.26 XMIL (4.7-6.1); WBC 5.82 X1000 (4.8-10.8)
[2018-11-04 07:27] LABS: CALCIUM 8.4 mg/dL (8.8-10.2); CREATININE 1.4 mg/dL (0.7-1.2); POTASSIUM 3.4 mmol/L (3.5-5.1)
[2018-11-04] MEDS ORDERED: ZITHROMAX PO SCH (09:00)
[2018-11-04] MEDS: ROCEPHIN 1 GM in NS 50 ML IV SCH (09:06)
[2018-11-04] MEDS: ASPIRIN PO SCH (09:06)
[2018-11-04] MEDS: LOPRESSOR PO SCH ×2 (09:06→21:45)
[2018-11-04] MEDS: DOXYCYCLINE PO SCH ×2 (09:06→21:44)
[2018-11-04] MEDS: VITAMIN D PO SCH (09:07)
[2018-11-04] MEDS: FLONASE NAS SCH (09:50)
[2018-11-04] MEDS: MUCOMYST 20% INH SCH ×2 (10:40→21:49)
[2018-11-04] MEDS: LIPITOR PO SCH (21:44)
--- NOTE | 2018-11-04 22:19 | PROGRESS NOTE ---
DATE: 11/04/2018 SUBJECTIVE: Patient notes he has started feeling better. He is able to get up and move about some. He denies any chest pain, palpitations, currently denies any fevers. PHYSICAL EXAM: Vital signs: Temperature 99, pulse 67, respiratory rate 18, BP 151/67, sat 98% on BiPAP. General: Currently, the patient is awake, alert. He is wearing his BiPAP. He normally wears CPAP at home. He denies any chest pain, palpitations. States he still had fever yesterday but has not had any since. He has started being able to get out of bed. HEENT: Normocephalic. Neck: Supple. Cardiovascular: Regular rhythm and rate. Chest: Relatively clear. Minimal rhonchi throughout. No wheezing. Abdomen: Soft, nondistended. Extremities: Moves all extremities. ASSESSMENT: 1. Left upper lobe pneumonia. 2. Hypokalemia. 3. Chronic renal failure. 4. Anemia of chronic disease. 5. Hypertension. 6. Chronic obstructive sleep apnea. PLAN: We will continue patient in the hospital, continue antibiotics, physical therapy, and will follow. cc: Rivas Figueredo MD
[2018-11-05] MEDS: ROBITUSSIN-AC PO PRN (02:49)
[2018-11-05] MEDS: DUONEB (A & A) INH SCH ×3 (03:35→11:01)
[2018-11-05 05:50] VITALS: BP 158/71
[2018-11-05 06:26] LABS: BASO# 0.01 X1000 (0.0-0.2); BASO% 0.2 % (0.0-0.8); EOS% 9.9 % (0.0-10.0); HEMATOCRIT 28.3 % (42.0-52.0); HEMOGLOBIN 8.7 g/dL (14.0-18.0); IMM GRAN# 0.03 X1000 (0.0-0.04); IMM GRAN% 0.6 % (0.0-0.5); LYMPH# 0.76 X1000 (1.2-3.4); LYMPH% 15.1 % (20.5-51.1); MCH 27.5 PG (27-31); MCHC 30.7 g/dL (33-37); MCV 89.6 FL (81-99); MONO# 0.57 X1000 (0.11-0.59); MONO% 11.3 % (1.7-9.3); MPV 11.5 FL (7.4-10.4); NEUT# 3.17 X1000 (1.4-6.5); NEUT% 62.9 % (42.2-75.2); PLT 130 X1000 (130-400); RBC 3.16 XMIL (4.7-6.1); RDW 15.2 % (11.5-14.5); WBC 5.04 X1000 (4.8-10.8)
[2018-11-05] MEDS ORDERED: MUCOMYST 20% INH SCH (06:39)
[2018-11-05 06:51] LABS: ALBUMIN 2.9 g/dL (3.5-5.0); CALCIUM 8.3 mg/dL (8.8-10.2); CREATININE 1.3 mg/dL (0.7-1.2); POTASSIUM 3.7 mmol/L (3.5-5.1); TOTAL BILIRUBIN 0.3 mg/dL (0.20-1.00); TOTAL PROTEIN 5.8 g/dL (6.3-8.3)
[2018-11-05] MEDS: FLONASE NAS SCH (08:31)
[2018-11-05] MEDS: LOPRESSOR PO SCH (08:32)
[2018-11-05] MEDS: DOXYCYCLINE PO SCH (08:32)
[2018-11-05] MEDS: VITAMIN D PO SCH (08:32)
[2018-11-05] MEDS: ASPIRIN PO SCH (08:32)
[2018-11-05] MEDS: ROCEPHIN 1 GM in NS 50 ML IV SCH (08:32)
--- NOTE | 2018-11-05 10:31 | EKG Report ---
Test Performed on : 11/02/2018 06:24:23 AM Test Reason : ER Blood Pressure : / mmHG Vent. Rate : 074 BPM Atrial Rate : 074 BPM P-R Int : 174 ms QRS Dur : 102 ms QT Int : 408 ms P-R-T Axes : -01 061 246 degrees QTc Int : 452 ms Normal sinus rhythm. ST & T wave abnormality, consider inferior ischemia Abnormal ECG When compared with ECG of 07-NOV-2016 13:31, PA interval has decreased T wave inversion now evident in Inferior leads Nonspecific T wave abnormality now evident in Lateral leads Unconfirmed Result
--- NOTE | 2018-11-05 17:57 | DISCHARGE SUMMARY ---
ADMISSION DATE: 11/02/2018 DISCHARGE DATE: 11/05/2018 DIAGNOSES: 1. Left upper lobe pneumonia. 2. Acute kidney injury in the setting of chronic kidney disease. 3. Anemia of chronic disease. 4. Hypertension. 5. Chronic obstructive sleep apnea. 6. Hypokalemia resolved. DIAGNOSTICS: 1. 11/02/2018, chest x-ray revealed left upper lobe pneumonia. 2. 11/03/2018, CT of the chest without contrast revealed very dense left upper lobe consolidation indicating severe pneumonia, mild linear scarring at the mid and lower lung zones bilaterally, cardiomegaly and incidental small left renal nodule and right adrenal nodule. MICROBIOLOGY: 1. Blood cultures x2 revealed no growth after 48 hours. 2. Sputum culture revealed normal meghann. HOSPITAL COURSE: Mr. Johnson presented to the emergency room complaining of subjective fever, chills, body aches, and green sputum. He was found to have left upper lobe pneumonia for which he was treated with Rocephin and initially azithromycin although the did state that she found a tick on the patient while in triage. Therefore, we did change azithromycin to doxycycline. Thankfully, he has improved. He is able to get up and move about with less shortness of breath. He has remained afebrile over the last 48 hours. Thankfully, He is ready for discharge. DISCHARGE PHYSICAL EXAMINATION: Vital Signs: Blood pressure is 158/71 with a heart rate of 62, respirations are 18, temperature is 98.5 degrees oral. Room air saturations, they are 95% to 100 percent Cardiovascular: Regular rate and rhythm. S1 and S2 appreciated. He has no lower extremity edema. Peripheral pulses are palpable. Calves are nontender. Pulmonary: Breath sounds are clear with no increased work of breathing noted. Chest rises and falls symmetrically with respiration. Gastrointestinal: Abdomen is soft, nontender, nondistended. Bowel sounds in all 4 quadrants Neurologic: He is alert and oriented x3. Skin: warm and dry with no rash noted. DISCHARGE MEDICATIONS: 1. Aspirin 325 mg p.o. daily. 2. Lipitor 40 mg p.o. daily. 3. Vitamin D3 2000 units p.o. daily. 4. Flonase 1 spray daily. 5. Cozaar 50 mg p.o. b.i.d. 6. Lopressor 50 mg p.o. b.i.d. 7. Torsemide 20 mg p.o. as directed. 8. Omnicef 300 mg p.o. b.i.d. x7 days. 9. Doxycycline 100 mg p.o. b.i.d. x7 days. FOLLOW-UP: He needs to follow up with his primary care physician, Dr. Almaraz in the next week. He needs to call and schedule an appointment. DISCHARGE INSTRUCTIONS: He has been instructed to call to be seen sooner or return to the emergency room for temperature greater than 101, any syncope, dizziness, chest pain, palpitations, any recurring shortness of breath, any rash or for any questions or concerns that he may have. DISPOSITION: He is being discharged home in stable condition with family members. TIME SPENT: This is a greater than 30 minute discharge. Dictated by AZ Hinkle for Rivas Figueredo MD This chart was documented by, AZ Hinkle and accurately reflects the services performed, treatment plan and medical decisions as attested by the providers signature Rivas Figueredo MD. cc: AZ Hinkle MD Thomas E. Lockard, DO CRISTINAD
--- NOTE | 2018-11-06 01:38 | DISCHARGE SUMMARY ---
ADMISSION DATE: 11/02/2018 DISCHARGE DATE: 11/05/2018 ADDENDUM: The patient was seen and examined by myself. The full note was dictated and discussed with nurse practitioner. The patient had an uneventful hospital course with the exception of he had 1 episode of ventricular tachycardia, it was 8 to 10 beats nonsustained. Thankfully this did not occur again. He was watched for 36 hours afterwards with no further events. He was able to ambulate without any difficulty. We will discharge him home, continue antibiotics for a total 7- day course. He does have left upper lobe pneumonia with a very dense infiltrate. He will follow up outpatient with his primary care. cc: Rivas Figueredo MD
== END 2018-11-05 11:52 | disposition home or self-care (01) | DRG 871 ==
LOC: P.ED 06:10 → SUATTDRO 09:40 → P.MEDSURG 09:40
PROVIDERS: ATTEND Family Medicine
CPT/HCPCS: 36415; 71020; 71046; 71250; 80048; 80053; 82570; 83605; 83690; 83735; 83880; 84300; 84484; 85025; 86480; 87040; 87070; 87205; 87275; 87276; 87449; 87804; 87899; 93005; 94640; 94761; 96365; 99284; A9270; J0456; J0696; J1650; J7030